=== PATIENT | male | born 1995 | race African-American/Black ===

== ENCOUNTER 2018-12-09 17:27 | Emergency (ER) | payer OTHER ==
[~2018-12-09] VITALS: Ht 172.7 cm; Wt 71.7 kg
[2018-12-09] MEDS ORDERED: VENTOLIN HFA 1818 GM INH ×2 (18:39→18:59)
[2018-12-09] MEDS ORDERED: NAPROSYN500 MG PO ×2 (18:39→18:59)
[2018-12-09 19:01] VITALS: BP 131/83
--- NOTE | 2018-12-10 08:28 | EKG ---
[place] [address] [facility] [place] [address] ELECTROCARDIOGRAM REPORT Name: MARIAMA GALLEGO [id number] ������������������ Admission: 12/09/18 ������������������ Attend Phys: Discharge: 12/09/18 ������������������ Date of : [birth year] Report #: [id number] ����������������������������������������������������������������� [id number] THIS REPORT FOR: //name// [facility] ED Test Date: 2018-12-09 Test Time: 17:43:59 Pat Name: MARIAMA GALLEGO Department: Room: Gender: Director Athletic: : 1995 Requested By: Christina Olguin Order Number: [id number] MD: Taras Power Measurements Intervals Beggs Rate: 69 P: 56 AR: 139 QRS: 66 QRSD: 80 T: 39 QT: 384 QTc: 412 Interpretive Statements Sinus rhythm ST elev, probable normal early repol pattern No previous ECG available for comparison Electronically Signed On 12-10-2018 8:28:07 CDT by Taras Power [email or web address] ��������������������������������������������� <ELECTRONICALLY SIGNED> ���������������������������������������� By: Taras Power MD ��������������������������������������������� 12/10/18 0828 1743 1743 Taras Power MD /DANA
== END 2018-12-09 19:02 | disposition home or self-care (01) ==
LOC: ER 17:27
DX: M94.0 Chondrocostal junction syndrome [Tietze] (principal)